=== PATIENT | female | born 1965 | race Caucasian/White ===

== ENCOUNTER 2016-12-05 14:51 | Emergency (ER) | payer MEDICAID ==
[~2016-12-05] VITALS: Ht 157.5 cm; Wt 100.5 kg
[~2016-12-05 14:51] MED LIST: ACET1TAB64 PO; ALBU18HF PO; ATOR40TA78 PO; CYCL-259 PO; GABA300C10 PO; LISI-170 PO; METF500T4 PO; NAPR500T3 PO; OXYC-302 PO; VITAMIN D
[2016-12-05] MEDS ORDERED: HYDR2TAB13 PO (16:46)
[2016-12-05] MEDS ORDERED: NAPR500T3 PO (16:47)
[2016-12-05] MEDS ORDERED: HYDROmorphone 2 MG/ML, 1ML ONE (17:27)
[2016-12-05] MEDS ORDERED: HYDROmorphone 1 MG/ML, 1ML IM ONE (17:30)
[2016-12-05 17:42] VITALS: BP 128/84
== END 2016-12-05 18:24 | disposition home or self-care (01) ==
LOC: ED 18:07
DX: M79.662 Pain in left lower leg (principal); M79.89 Other specified soft tissue disorders; G89.29 Other chronic pain; F17.210 Nicotine dependence, cigarettes, uncomplicated; F11.10 Opioid abuse, uncomplicated; I10 Essential (primary) hypertension; W07.XXXA Fall from chair, initial encounter; Y93.89 Activity, other specified; Y99.8 Other external cause status; Y92.009 Unspecified place in unspecified non-institutional (private) residence as the place of occurrence of the external cause
CPT/HCPCS: 73590; 73610; 93971; 96372; 99284; J1170

== ENCOUNTER → 2018-06-13 | Outpatient (CLI) | payer MEDICARE, MEDICAID ==
[~2018-06-13] MED LIST changes: +HYDR2TAB29 PO; +METF500T17 PO; -METF500T4 PO; +NAPR-685 PO; -NAPR500T3 PO
== END | disposition home or self-care (01) ==
LOC: CFH 10:34
PROVIDERS: ATTEND Family Medicine
DX: Z12.31 Encounter for screening mammogram for malignant neoplasm of breast (principal)
CPT/HCPCS: 77067

== ENCOUNTER → 2018-10-07 | Outpatient (CLI) | payer MEDICARE, MEDICAID | END | disposition home or self-care (01) | LOC: CVU 07:23 | PROVIDERS: ATTEND Family Medicine | DX: M79.662 Pain in left lower leg (principal); R20.9 Unspecified disturbances of skin sensation; R60.0 Localized edema; E11.9 Type 2 diabetes mellitus without complications; E78.00 Pure hypercholesterolemia, unspecified; F17.210 Nicotine dependence, cigarettes, uncomplicated | CPT/HCPCS: 93922 ==